=== PATIENT | male | born 1960 | race Caucasian/White ===

== ENCOUNTER → 2017-07-27 09:42 | Outpatient (POV) | payer BC, SELFPAY | PROVIDERS: PCP Family Medicine; Visit Provider Specialist | DX: G56.02 Carpal tunnel syndrome, left upper limb (principal); G56.01 Carpal tunnel syndrome, right upper limb | CPT/HCPCS: 95886; 95909 ==

== ENCOUNTER → 2018-07-01 11:02 | Outpatient (CLI) | payer OTHER, SELFPAY ==
--- NOTE | 2018-07-01 11:10 | XR_ITS ---
XR hip LT 2-3V w/pelvis HISTORY: ITS.REASON: LEFT LEG PAIN,LOW BACK PAIN,DECREASED SENSATION OF LEG ORDERING PHYSICIAN: Ita Higginbotham PATIENT AGE: 58 years COMPARISON: None FINDINGS: No fracture or dislocation is evident. There is mild osteoarthritis of both hips with decrease in joint space medially and mild osteophyte formation along the lower aspect of the acetabulum. No lytic or blastic change. Small bone island involves the left femoral neck at 7 mm IMPRESSION: Mild osteoarthritis of the hips
--- NOTE | 2018-07-01 11:11 | XR_ITS ---
EXAM: XR lumbar spine min 4V HISTORY: ITS.REASON: LEFT LEG PAIN,LOW BACK PAIN,DECREASED SENSATION OF LEG ORDERING PHYSICIAN: Ita Higginbotham PATIENT AGE: 58 years COMPARISON: None FINDINGS: Normal alignment. No fracture or dislocation. No lytic or blastic change. There is degenerative disc disease at L5-S1 with decrease in the disc space and small osteophytes at L4 and L5. There are mild facet arthritic changes at L5-S1. Small anterior osteophytes are present at T12 and L1 IMPRESSION: 1. Degenerative disc disease L5-S1. 2. Mild facet arthritic change L5-S1
== END ==
PROVIDERS: PCP Nurse Practitioner; Visit Provider Nurse Practitioner
DX: M79.605 Pain in left leg (principal); M54.5 Low back pain; R20.8 Other disturbances of skin sensation
CPT/HCPCS: 72110; 73502

== ENCOUNTER → 2018-07-20 08:20 | Outpatient (CLI) | payer OTHER, SELFPAY ==
--- NOTE | 2018-07-20 08:22 | MR_ITS ---
MR hip LT wo con Ordering Physician: Ita Higginbotham Patient Age: 58 years: Male HISTORY: ITS.REASON: ABNORMAL X-RAY Left hip and left buttocks pain. Pain with walking and sitting. No trauma. TECHNIQUE: Multiplanar multisequence imaging 1.5 the MR.No IV contrast . Axial and coronal T1 and STIR images of the pelvis, along with sagittal proton density and T1 image of left hip COMPARISON :. Left hip radiograph July 01, 2018 FINDINGS The femoral head is normal contour and density bilaterally. No evidence of avascular necrosis. The the left hip joint space is well-maintained. Cartilage appears maintained. No subchondral cyst formation. The left acetabular labrum visualized and intact. . The right hip appears intact and symmetrical as well. . No joint effusion either hip. . Initially question Subtle 'pistol-power regulator' configuration the femoral necks on the AP pelvis radiograph but this mild anatomical variation is less evident on MRI.. There is adequate generous generous length bilaterally. No associated areas of impingement or reactive bone changes on either superior femoral neck or hip associated.- No of evidence of femoral acetabular impingement.. No trochanteric bursitis. Trochanteric regions unremarkable bilaterally. There is a small benign bone island at the left femoral neck. 6 mm length. There is a tiny is cystic area towards the lateral subtrochanteric region on the left., Just inferior to the greater trochanter. Not felt to be of significance. No other similar findings. Graphical lower most pelvis included. The pubis, superior and inferior ramus appear normal signal and intact. Only pelvic basin included. No pelvic adenopathy or mass. Normal size prostate. .......IMPRESSION........................ Negative MRI of LEFT HIP, as well as included Right Hip Femoral head intact; hip joint space well maintained. Acetabulum and labrum satisfactory.
== END ==
PROVIDERS: PCP Family Medicine; Visit Provider Nurse Practitioner
DX: R93.89 Abnormal findings on diagnostic imaging of other specified body structures (principal); M25.552 Pain in left hip
CPT/HCPCS: 73721

== ENCOUNTER → 2018-08-20 07:52 | Outpatient (CLI) | payer OTHER, SELFPAY ==
--- NOTE | 2018-08-20 07:54 | MR_ITS ---
MR lumbar spine wo con, MR 3-d myelogram/MRCP HISTORY: Low back pain with left leg pain and numbness ITS.REASON: back pain/ hip pain ORDERING PHYSICIAN: Arina Weller MD PATIENT AGE: 58 years Comparison: 07/01/2018 TECHNIQUE: Standard multiplanar multiecho sequences are performed without contrast. 3-D MIP and myelographic images are also rendered and reviewed FINDINGS: There is normal alignment. The spinal cord ends at the L1-L2 level. T12-L1, L1-L2, and L2-L3 have an unremarkable appearance L3-L4: Mild concentric bulging disc with mild facet and ligamentum flavum hypertrophy with mild bilateral foraminal narrowing. L4-5: There is concentric bulging disc along with facet and ligamentum flavum hypertrophy with moderate bilateral lateral recess and foraminal narrowing. In addition, there is a small to medium-sized left paracentral disc herniation with inferior extrusion of the disc. The disc is extruded inferiorly from left 12 mm. The extruded disc is impinging upon the left L5 nerve root. L5-S1: Concentric bulging disc eccentric toward the right with endplate osteophyte at L5 with facet and ligamentum flavum hypertrophy moderate right lateral recess and moderate bilateral foraminal narrowing. Bilateral renal cysts are noted. IMPRESSION: 1. Mild concentric bulging disc at L3-L4 with mild facet and ligamentum flavum hypertrophy with mild bilateral foraminal narrowing. 2. Bulging disc at L4-L5 along with facet and ligamentum flavum hypertrophy with moderate bilateral lateral recess and foraminal narrowing. In addition, there is a small to medium-sized left paracentral disc herniation with inferior extrusion of the disc. The disc is extruded inferiorly from left 12 mm. The extruded disc is impinging upon the left L5 nerve root. 3. Concentric bulging disc at L5-S1 eccentric toward the right with endplate osteophyte at L5 with facet and ligamentum flavum hypertrophy moderate right lateral recess and moderate bilateral foraminal narrowing
== END ==
PROVIDERS: PCP Family Medicine; Visit Provider Orthopaedic Surgery
DX: M54.5 Low back pain (principal)
CPT/HCPCS: 72148; 76376

== ENCOUNTER → 2020-09-12 08:11 | Outpatient (CLI) | payer OTHER, SELFPAY ==
[2020-09-12 08:15] LABS: Microscopic, Urine URINE MICROSCOPIC (MICROSCOPIC)
[2020-09-12 08:41] LABS: Basophils # 0.1 K/mm3 (0-0.2); Basophils % 0.8 % (0.1-2.0); Eosinophils # 0.2 K/mm3 (0.0-0.4); Hemoglobin 14.4 g/dL (14.1-18.0); Lymphocytes % 55.1 % (10-50); Mean Corpuscular HGB Conc 32.8 g/dL (31.8-35.4); Mean Corpuscular Hemoglobin 28.2 pg (27.0-31.2); Mean Corpuscular Volume 85.9 fl (80-94); Mean Platelet Volume 7.3 fl (7.4-10.4); Monocytes # 0.5 K/mm3 (0.1-1.0); Monocytes % 3.4 % (1.7-9.3); Neutrophils # 5.8 K/mm3 (1.8-7.8); Neutrophils % 39.8 % (37.0-80.0); Platelet Count 226 K/mm3 (142-424); Red Blood Count 5.12 M/mm3 (4.60-6.20); Red Cell Distribution Width 13.6 % (11.5-17.5); White Blood Count 14.6 K/mm3 (4.8-10.8)
[2020-09-12 08:55] LABS: Chloride 103 mmol/L (98-107); Sodium 140 mmol/L (136-145)
[2020-09-12 08:59] LABS: Blood Urea Nitrogen 15 mg/dl (9-20); Calcium 9.5 mg/dl (8.4-10.2); Carbon Dioxide 27 mmol/L (22.0-30.0); Estimated Glomerular Filt Rate 99 ml/min (>60); GFR (African American) 120 ML/MIN (>60); Glucose 110 mg/dl (74-100)
[2020-09-12 09:13] LABS: MANUAL DIFFERENTIAL MANUAL DIFFERENTIAL (MANUAL DIFF)
[2020-09-12 09:24] LABS: Appearance,Urine CLEAR (Clear); Bilirubin,Urine Negative (Negative); Blood, Urine Negative (Negative); Color,Urine YELLOW (Yellow); Glucose,Urine (UA) Negative (Negative); Ketones,Urine Negative (Negative); Leukocyte Esterase,Urine Negative (Negative); Nitrate,Urine Negative (Negative); Protein,Urine Negative (Negative); Urobilinogen,Urine 0.2 EU/dl (0.2)
[2020-09-12 09:53] LABS: Coronavirus 19 IgG Antibody Negative (Negative); Coronavirus 19 IgM Antibody Negative (Negative)
--- NOTE | 2020-09-12 10:08 | ECG_ITS ---
APPROVED REPORT Exam: Resting ECG HR:69 bpm ECG Measurements Heart Rate 69 AXES NE 136 P 51 QRSd 98 QRS 63 QT 392 T 49 QTc 420 Conclusion Normal sinus rhythm Possible Left atrial enlargement Incomplete right bundle branch block Left ventricular hypertrophy Abnormal ECG Electronically signed by : Boni Patiño, 09/13/2020 13:56:34
[2020-09-12 10:47] LABS: Lymphocytes % 49 % (10-50); Monocytes % 3 % (2-9); Neutrophils % 48 % (42-76); Platelet Estimate Normal; RBC Morphology Normal; Total Cells Counted 100
== END ==
PROVIDERS: Visit Provider Surgery
DX: Z01.812 Encounter for preprocedural laboratory examination (principal); Z11.52 Encounter for screening for COVID-19; K40.90 Unilateral inguinal hernia, without obstruction or gangrene, not specified as recurrent
CPT/HCPCS: 36415; 80048; 81001; 85007; 85025; 86328; 93005

== ENCOUNTER 2020-09-14 06:12 | Day surgery (SDC) | payer OTHER, SELFPAY ==
[2020-09-11 12:39] VITALS: BMI 24.3
[2020-09-14] VITALS (12 sets, daily range): BP systolic 93–132; BP diastolic 63–84; PULSE 56–70; RESP 15–20; TEMP 36.6–43; O2SAT 91–97
--- NOTE | 2020-09-14 08:36 | P.OP_ITS ---
Date of procedure: 09/14/20 Pre-op Diagnosis:: Right inguinal hernia Post-op Diagnosis:: Sliding right inguinal hernia Procedure performed:: Open repair of sliding right inguinal hernia Surgeon:: Johnathan Villagomez MD Environmental Services Tech(s):: Ashley KNUCKLE BENDER:: Candelario Villafuerte Anesthesia: GETA Estimated blood loss (mL): 10 Operative findings:: Severe thickening and adhesions between vas deferens/vessels and hernia sac Sliding component along with inferior margin of hernia sac Operative note:: After informed consent was obtained the patient was taken to the operating room and placed in the supine position. General anesthesia was induced and his abdomen/groin/scrotum were prepped and draped in a sterile fashion. After infiltration local anesthetic an oblique right groin incision was made. The deep subcutaneous tissue was dissected with electrocautery through Anthony's fascia to the level of the external aponeurosis. The external aponeurosis was sharply opened to the level of the external ring. The contents of the canal were carefully elevated. Severe adhesions noted throughout the canal. A thic kened/lobulated hernia sac was carefully from surrounding tissue. The vas deferens and vessels were adhered/incorporated into the inferior margin of the hernia sac. No obvious injury to the vas deferens or vessels noted. The hernia sac was carefully opened. A sliding component was noted along the inferior margin. The hernia sac was then closed with running 2-0 Vicryl. An extra-large PerFix plug was then secured in position as the hernia sac was inverted. The PerFix plug was secured with 0 Ethibond. The PerFix overlay mesh was also secured to the shelving edge inferiorly and fascial margin superiorly utilizing 0 Ethibond. The wound was irrigated. The external aponeurosis was reapproximated with running 2-0 Vicryl. Anthony's fascia was closed in the same manner. Skin was then closed with running 3-0 StrataFix. Dressings were applied and the patient was transferred to recovery in stable condition after extubation. Condition: stable Disposition: PACU Specimens:: None Complications:: No immediate
--- NOTE | 2020-09-14 08:47 | P.PN_ITS ---
[facility] [place] Anesthesia Checklist - Patient Identification Patient Identification: Arm Band - Structural Data Admitted From: Home Planned Operative Procedure/s: Right Open Inguinal Hernia Repair Consent for Planned Operative Procedure(s) Verified: Yes Verified Documents: Surgical Consent, History and Physical - NPO Status Verified Time NPO: 00:00 - Additional verifications Anesthesia Reactions: No Hx Blood Transfusions: No Blood Transfusion Reaction: No - Airway Assessment C-Spine Mobility Assessed: Yes (mp2) TMJ Mobility Assessed: Yes Dentition: Edentulous - Neurological Assessment Level of Consciousness: Awake, Alert - Anesthesia Plan Anesthesia Risk discussed: Yes Anesthesia Plan: Verified ASA Class: II Anesthesia Type: General [facility] [place] History I have reviewed the patient's past medical history: Yes Medical History: Reports:: Hypertension Denies:: Cancer, Diabetes Mellitus Type 1, Diabetes Mellitus Type 2, Internal Pacemaker, MRSA, Seizures *Have you ever received a pneumonia vaccine?: No *Have you received a flu vaccine this season?: Yes Other Medical History: Denies: Blood Transfusion Reaction Anesthesia experience/problems:: nac Laterality Cases: Left: Arthroscopy Knee, Right: Other Other Surgeries: Yes: Appendectomy, Colonoscopy. No: Pacemaker Amputation: No Fractures: Yes - *Social History Last grade of school completed: GED Smoking Status: Current every day smoker Tobacco Type: cigarettes # Packs/Day (cigarettes): 1 Alcohol Intake: never Substance Use Type: denies use *Occupational Status:: employed Housing: house Household Members: spouse *Travel in the last 8 weeks: None Family Hx:: No significant family history
--- NOTE | 2020-09-14 08:48 | HMH.ANESI ---
[facility] Anesthesia Record Part I Intake, IV Amount: 1,200 Estimated blood loss (mL): 10 Urine output (mL): 100 Blood Pressure: 93/65 SaO2: 91 Pulse Rate: 67 Respiratory Rate: 16 Temperature: 99.3 F Patient is:: Drowsy, Stable Stable to PACU at:: 08:45
[2020-09-14 08:50] LABS: Microscopic,Cath URINE MICROSCOPIC (MICROSCOPIC)
[2020-09-14 09:18] LABS: Appearance,Urine/Cath CLEAR (Clear); Bilirubin,Cath Negative (Negative); Blood, Urine/Cath Negative (Negative); Color,Urine/Cath YELLOW (Yellow); Glucose,Urine/Cath (UA) Negative (Negative); Ketones,Urine/Cath Negative (Negative); Leukocyte Esterase,Cath Negative (Negative); Nitrate,Cath Negative (Negative); Protein,Urine/Cath Negative (Negative); Urobilinogen,Cath 0.2 EU/dl (0.2)
--- NOTE | 2020-09-14 13:38 | HMH.ANESII ---
[facility] Anesthesia Record Part II Discharge Time: 09:15 Destination: Surgical Day Care (OP Surgery) PACU nurse assessment reviewed?: Yes Patient Condition:: Good Anesthesia Complications:: None Swallowing reflex intact?: Yes Cyanosis?: No Blood Pressure: 107/73 Pulse Rate: 56 Temperature: 99.3 F Mental Status: Alert & Oriented Pain level:: 0 Nausea and/or vomitting:: None Intake, IV Amount: 0
== END 2020-09-14 10:00 | disposition home or self-care (01) ==
PROVIDERS: PCP Family Medicine; Visit Provider Surgery
PROC: (CPT 49507; principal; 2020-09-14 07:30)
DX: K40.90 Unilateral inguinal hernia, without obstruction or gangrene, not specified as recurrent (principal); K66.0 Peritoneal adhesions (postprocedural) (postinfection); K21.9 Gastro-esophageal reflux disease without esophagitis; Z79.899 Other long term (current) drug therapy
CPT/HCPCS: 49507; 81001; 96374; J2405; J2710

== ENCOUNTER 2023-02-08 09:16 | Emergency (ER) | payer OTHER, SELFPAY ==
[2023-02-08 09:45] VITALS: BP 119/75; PULSE 80; RESP 19; TEMP 37.1; O2SAT 96; BMI 25.1
--- NOTE | 2023-02-08 09:48 | XR_ITS ---
PROCEDURE INFORMATION: Exam: XR Chest Exam date and time: 02/08/2023 9:50 AM Age: 62 years old Clinical indication: Cough and fever and shortness of breath; Additional info: SOB, fever, body aches, chills TECHNIQUE: Imaging protocol: Radiologic exam of the chest. Views: 2 views. COMPARISON: No relevant prior studies available. FINDINGS: Lungs: COPD and interstitial disease. Poorly defined density in the superior segment of the right lower lobe, which can be better assessed with CT if clinically indicated. Pleural spaces: No pleural effusion. Heart/Mediastinum: Enlargement of the central pulmonary arteries, in a pattern of pulmonary arterial hypertension. No cardiomegaly. Bones/joints: Degenerative change. IMPRESSION: 1. COPD and interstitial disease. 2. Poorly defined density in the superior segment of the right lower lobe, which can be better assessed with CT if clinically indicated. 3. Additional findings as described above.
[2023-02-08 09:55] LABS: UTC Influenza A Antigen Negative (Negative); UTC Influenza B Antigen Negative (Negative)
--- NOTE | 2023-02-08 10:00 | EXP.UTC ---
Discharge Plan Disposition Patient Disposition: Home, Self-Care Condition: Good Prescriptions Prescriptions: New benzonatate 200 mg capsule 200 mg PO BID PRN (Reason: cough) Qty: 30 0RF methylprednisolone 4 mg Tablets,Dose Pack 4 mg PO DIRECTED Qty: 21 0RF cefdinir 300 mg capsule 300 mg PO BID Qty: 20 0RF No Action omeprazole magnesium [Prilosec OTC] 20 mg tablet,delayed release (DR/EC) 20 mg PO DAILY valsartan 80 MG tablet 80 mg PO DAILY gabapentin 300 MG capsule 300 mg PO QHS hydrocodone-acetaminophen 1 TAB tablet 1 - 2 tab PO Q6HP PRN (Reason: post-op pain) Qty: 17 0RF henvnipnzt-wfkzrlvzmhgiu-ffde 50-325-40 mg tablet 1 tab PO NEEDED PRN (Reason: LOREDO) azelastine 137 mcg (0.1 %) aerosol,spray 2 spray INTRANASAL DAILY naproxen 500 mg tablet 500 mg PO BID diazepam 5 mg tablet 5 mg PO BID Referrals Follow up/Referrals: Ru Sol MD [Primary Care Provider] - See instructions Activity Restrictions/Add. Instructions Additional Instructions/Restrictions: Drink plenty of fluids. Take tylenol or ibuprofen for pain or fever. Take the medications as directed. Follow up with your regular doctor. GO TO THE ER FOR ANY WORSENING SYMPTOMS Clinical Impressions Clinical Impression: Acute bronchitis, Acute viral syndrome Stand Alone Forms Stand Alone Forms: Work/School Release Instructions Patient Instructions: Acute Bronchitis, DI for Acute Bronchitis, Coronavirus Disease 2019, Preventing the Spread of Coronavirus Discharge Instructions Discharge ED Provider: Luis Felipe Chamorro [facility] General Stated complaint: dizzy,congested,cough,chills Mode of Arrival: Ambulatory Source of Information: Patient Limitations: No Limitations Time Seen by Provider: 02/08/23 10:00 Description of Symptoms (Recalled from Triage Doc. by RN): Pt stated that this started thursday. His symptoms are chills, chest congestion, and feels like he is SOB. HEENT Symptoms (Recalled from RN notes): Yes Resp Symptoms (Recalled from RN notes): No Skin Symptoms (Recalled from RN notes): No MS Symptoms (Recalled from RN notes): No Functional Status (Recalled from RN notes): n/a History of Present Illness Provider Complaint: He states that for the past 6 days he has had fever, chills, cough, chest congestion, fever and malaise. Related Data Home Medications Medication Instructions Recorded Confirmed omeprazole magnesium 20 mg 20 mg PO DAILY GERD 08/08/20 02/08/23 tablet,delayed release (Prilosec OTC) gabapentin 300 mg capsule 300 mg PO QHS Pain 09/11/20 09/26/20 valsartan 80 mg tablet 80 mg PO DAILY High blood pressure 09/11/20 02/08/23 azelastine 137 mcg (0.1 %) nasal 2 spray intranasal DAILY allergies 02/08/23 02/08/23 spray aerosol tkmbohqskf-nznemxqddczya-hvcmelwv 1 tab PO NEEDED PRN LOREDO 02/08/23 02/08/23 50 mg-325 mg-40 mg tablet diazepam 5 mg tablet 5 mg PO BID Anxiety 02/08/23 02/08/23 naproxen 500 mg tablet 500 mg PO BID Pain 02/08/23 02/08/23 Previous Rx's Medication Instructions Recorded hydrocodone 5 mg-acetaminophen 325 1 - 2 tab PO Q6HP PRN post-op pain 09/14/20 mg tablet #17 tabs benzonatate 200 mg capsule 200 mg PO BID PRN cough #30 caps 02/08/23 cefdinir 300 mg capsule 300 mg PO BID #20 caps 02/08/23 methylprednisolone 4 mg tablets in 4 mg PO DIRECTED #21 tabs 02/08/23 a dose pack Allergies Allergy/AdvReac Type Severity Reaction Status Date / Time Penicillins Allergy Verified 02/08/23 09:52 Worker's Comp Is this a Worker's Comp case?: No [facility] Disclaimer: The information contained in this section may have been updated after the patient was seen, as this information can be updated by other users. Social History Smoking Status: Current every day smoker tobacco type: cigarettes packs per day: 1 alcohol intake: never substance use type: denies use curr
[2023-02-08 11:01] VITALS: BP 119/75; PULSE 80; RESP 19; TEMP 37.1; O2SAT 96
== END 2023-02-08 11:01 | disposition home or self-care (01) ==
PROVIDERS: Emergency Provider Nurse Practitioner Family; PCP Family Medicine
DX: J20.9 Acute bronchitis, unspecified (principal); B34.9 Viral infection, unspecified; R50.9 Fever, unspecified; R53.81 Other malaise; F17.210 Nicotine dependence, cigarettes, uncomplicated
CPT/HCPCS: 71046; 87804; 99204; 99212; G0463

== ENCOUNTER 2024-10-05 07:27 | Day surgery (SDC) | payer OTHER, SELFPAY ==
[2024-10-03 14:09] VITALS: BMI 23.6
[2024-10-05 08:17] VITALS: BP 150/99; PULSE 87; RESP 18; TEMP 36.8; O2SAT 95
[2024-10-05] MEDS: LACTATED RINGERS 1000ML 1,000 ML 50 ML IV (08:26)
--- NOTE | 2024-10-05 08:41 | P.PNANES_ITS ---
[facility] Disclaimer: The information contained in this section may have been updated after the patient was seen, as this information can be updated by other users. Medical History Migraines Anxiety Arthritis Hypertension Surgical History History of surgery on lower extremity History of appendectomy H/O knee surgery History of lumbar surgery H/O inguinal hernia repair Family History Other Family history non-contributory Social History Smoking Status: Current every day smoker tobacco type: cigarettes packs per day: 1 alcohol intake: never substance use type: marijuana current occupational status: retired Travel in the last 8 weeks?: None household members: spouse housing: house current occupation: construction caffeine: Yes Have you lived/traveled outside [place] in past 30 days?: No Contact w/someone who lives/traveled outside US past 30 days?: No Exposure to someone with infectious disease in past 14 days?: No Do you have a fever (greater than 100.4 F or 38 C)?: No Have you tested positive for COVID-19?: No Exposed to someone with COVID-19 in past 14 days?: No Do you have a sore throat?: No Do you have a cough?: No Do you have any weakness?: No Are you experiencing any nausea/vomitting?: No Do you have any diarrhea?: No Are you experiencing any unusual bleeding?: No Do you have any muscle aches/pain?: No Do you have any abdominal pain?: No Are you experiencing loss of taste or smell?: No [facility] Anesthesia Checklist Patient Identification Patient Identification: Arm Band Structural Data Admitted From: Home Planned Operative Procedure/s: EGD/Colonoscopy Consent for Planned Operative Procedure(s) Verified: Yes Verified Documents: Surgical Consent and History and Physical NPO Status Verified Time NPO: 03:30 Additional verifications Anesthesia Reactions: No Hx Blood Transfusions: No Blood Transfusion Reaction: No Airway Assessment Mallampati Score:: Class II C-Spine Mobility Assessed: Yes TMJ Mobility Assessed: Yes Dentition: Edentulous Neurological Assessment Level of Consciousness: Awake, Alert and Appropriate Anesthesia Plan Anesthesia Risk discussed: Yes Anesthesia Plan: Verified ASA Class: II Anesthesia Type: MAC
--- NOTE | 2024-10-05 08:48 | P.HP_ITS ---
History of Present Illness *Admission Date: 10/05/24 *Reason for visit:: Acid reflux and dyspepsia for upper endoscopy/screening for colonoscopy *History of present illness: Mr. Flaherty is a 64-year-old gentleman who is here for diagnostic EGD and screening colonoscopy. He has had chronic GERD for most of his life. His last colonoscopy was 13 years ago. The examination is deemed medically necessary for diagnostic EGD and surveillance colonoscopy. The patient has been seen, interviewed and examined prior to the procedure by both myself and the anesthesia provider. [facility] Disclaimer: The information contained in this section may have been updated after the patient was seen, as this information can be updated by other users. Medical History (Updated 10/05/24 @ 08:49 by Neal Villareal II, MD) Migraines Anxiety Arthritis Hypertension Surgical History History of surgery on lower extremity History of appendectomy H/O knee surgery History of lumbar surgery H/O inguinal hernia repair Family History Other Family history non-contributory Social History Smoking Status: Current every day smoker tobacco type: cigarettes packs per day: 1 alcohol intake: never substance use type: marijuana current occupational status: retired Travel in the last 8 weeks?: None household members: spouse housing: house current occupation: construction caffeine: Yes Have you lived/traveled outside US in past 30 days?: No Contact w/someone who lives/traveled outside [place] past 30 days?: No Exposure to someone with infectious disease in past 14 days?: No Do you have a fever (greater than 100.4 F or 38 C)?: No Have you tested positive for COVID-19?: No Exposed to someone with COVID-19 in past 14 days?: No Do you have a sore throat?: No Do you have a cough?: No Do you have any weakness?: No Are you experiencing any nausea/vomitting?: No Do you have any diarrhea?: No Are you experiencing any unusual bleeding?: No Do you have any muscle aches/pain?: No Do you have any abdominal pain?: No Are you experiencing loss of taste or smell?: No Other Medical History Have you received the Flu Vaccine for this season: Yes Have you received the Pneumonia Vaccine: No Review of Systems Review of Systems Review of systems (narrative): Negative *Cardiovascular Comments: Negative *Gastrointestinal Comments: Negative *Genitourinary Comments: Negative *Musculoskeletal Comments: Negative *Neurologic Comments: Negative Meds Home Medications and Allergies Home Medications ?Medication ?Instructions ?Recorded ?Confirmed ?Type omeprazole magnesium 20 mg 20 mg PO DAILY GERD 08/08/20 10/05/24 History tablet,delayed release (Prilosec OTC) valsartan 80 mg tablet 80 mg PO DAILY High blood pressure 09/11/20 10/05/24 History tgdpisyxww-tebxfntyatrso-evwwptaq 1 tab PO NEEDED PRN LOREDO 02/08/23 10/05/24 History 50 mg-325 mg-40 mg tablet budesonide 160 mcg-glycopyr 9 2 inh inhalation BID 08/03/24 10/05/24 History mcg-formot 4.8 mcg/actuation HFA inhaler (Breztri Aerosphere) diazepam 5 mg tablet 5 mg PO BID PRN Anxiety 08/03/24 10/05/24 History naproxen 500 mg tablet 500 mg PO BID PRN Pain 08/03/24 10/05/24 History [id number] 140 gram-sod sulfate 9 500 ml PO .COMPLEX colonscopy #3 ea 09/21/24 Rx gram-NaCl 5.2gram-KCl-C oral pwdr packs (Plenvu) New Prescriptions to Start Prescriptions: Allergies Allergy/AdvReac Type Severity Reaction Status Date / Time Penicillins Allergy Unknown Verified 10/05/24 08:15 allergy reaction Exam Data for Last 24 hours Vital signs and Labs for Last 24 Hours: Temp Pulse Resp BP Pulse Ox O2 Del Method 98.3 F 87 18 150/99 H 95 Room Air 10/05/24 08:17 10/05/24 08:17 10/05/24 08:17 10/05/24 08:17 10/05/24 08:17 10/05/24 08:17 I & O for Last 24 hours: Intake & Output 10/02/24 10/03/24 10/04/24 10/05/24 23:59 23:59 23:59 23:59 Weight 165 lb *Routine HEENT Exam Head: Present normocephalic Eye: Present EOMI and PERRL ENT: Present mucous membranes moist *Routine Neck Exam Neck: Present supple *Routine Respiratory Exam Respiratory: Present CTA bilaterally *Routine Cardiovascular Exam Cardiovascular: Present RRR *Routine Abdominal Exam Abdominal: Present soft and normoactive bowel sounds; Absent tenderness *Routine Rectal Exam Rectal:: deferred *Routine Genitalia Exam Genitalia:: deferred *Routine Extremities Exam Extremities: Absent cyanosis, clubbing or edema *Routine Skin Exam Skin: Present warm; Absent rash *Routine Neurological Exam Neurological: Present alert and oriented X3 Assessment and Plan *Assessment and plan (1) GERD (gastroesophageal reflux disease): Status: Acute Category: Medical Code(s): K21.9 - Gastro-esophageal reflux disease without esophagitis (2) Screening for malignant neoplasm of colon: Status: Acute Category: Medical Code(s): Z12.11 - Encounter for screening for malignant neoplasm of colon Plan A/P: 1. GERD/chronic for upper endoscopy and screening for colonoscopy is the preprocedural diagnosis. The patient will be anesthetized/sedated using MAC sedation. The patient has been seen and examined. Cardiac and lung assessment prior to the examination is stable. Proceed with planned diagnostic upper endoscopy and screening colonoscopy.
--- NOTE | 2024-10-05 09:07 | P.PCN_ITS ---
[facility] Procedure Note Date: 10/05/24 Time: 09:14 Procedure Note:: Upper Endoscopy Procedure Report: Esophagogastroduodenoscopy with cold biopsies Endoscopost: Neal Villareal II, MD Referring Physician: Caridad Sol M.D. Date of Procedure: October 05, 2024 Equipment: Olympus GIF 190 standard upper endoscope Sedation: MAC sedation Indications: Mr. Flaherty is a 64-year-old gentleman with longstanding GERD. He was initially on Tums daily for many years. About 4 to 5 years ago he started using [id number]-ivr-cnxaafs Prilosec daily. This did eliminate his heartburn and reflux. He has tried weaning off of the Prilosec but he immediately has resurgence of his heartburn, reflux and dyspepsia. He went back on omeprazole and had resolution of symptoms. He does get some intermittent dysphagia to meats but does not always have dentures then and has some difficulty with mastication. He has never had an upper endoscopy. He recently had stool testing with Dr. Sol and this was either positive Hemoccult or positive Cologuard. I do not have recent CBC. Procedure: Prior to the procedure, a history and physical exam was performed, and patient's medications and allergies were reviewed. The risks, benefits and alternatives of the sedation and procedure were discussed with the patient. All questions were answered and informed consent was obtained. The patient was brought to the procedure room. Patient identification and proposed procedure were verified by the physician and the nurse. The patient was placed in a left lateral decubitus position and the scope was passed under direct vision. Throughout the procedure, the patient's blood pressure, pulse, and oxygen saturations were monitored continuously. The upper GI endoscopy was accomplished without difficulty. The patient tolerated the procedure well. Findings: The scope was passed directly into the upper esophagus and advanced to the third portion of the duodenum. The post bulbar duodenum and duodenal bulb were normal with normal mucosa and conniventes. The scope was withdrawn through a normal duodenal bulb and pylorus into the stomach. There was mild linear reactive gastropathy of antrum and mild chronic gastritis of the proximal stomach. Cold biopsies were taken from the lesser curvature to rule out H. pylo ri. Upon retroflexion there was a 2 cm hiatal hernia. The scope was then withdrawn into the esophagus. There were 2 tongues of salmon-colored mucosa consistent with short segment Pandya's esophagus. Directed biopsies were obtained in the distal esophagus. There was no evidence of reflux esophagitis. There were tertiary contractions and evidence of moderate esophageal dysmotility. The remainder of the esophageal mucosa was normal. Impression: 1. Nonerosive GERD with 2 tongues of salmon-colored mucosa distal esophagus consistent with short segment Pandya's esophagus and small 2 cm hiatal hernia 2. Mild antral gastropathy and mild chronic gastritis Plan: I will follow-up the biopsies. I would continue omeprazole as maintenance therapy. I would consider Voquezna. I will discuss the findings with the patient and family and proceed with surveillance colonoscopy.
[2024-10-05 09:08] VITALS: O2SAT 99
--- NOTE | 2024-10-05 09:17 | P.PCN_ITS ---
[facility] Procedure Note Date: 10/05/24 Time: 09:31 Procedure Note:: Colonoscopy Procedure Report: Colonoscopy with cold snare polypectomy and cold biopsies Endoscopist: Neal Villareal II, MD Referring physician: Caridad Sol M.D. Date of Procedure: October 05, 2024 Equipment: Olympus 190 variable stiffness pediatric colonoscope Sedation: MAC sedation Indication: Mr. Flaherty is a 64-year-old gentleman who is here for screening/surveillance colonoscopy. The patient does state that his recent s creening stool test (Hemoccult or Cologuard) was positive. He does state that his last colonoscopy was 13 years ago. He does have some chronic diarrhea for the last several months which is new. The patient reports no rectal bleeding or melena. He reports no abdominal pain, weight loss or family history of colon cancer. He can occasionally get a lower abdominal cramp that proceeds the bowel movement. Procedure: Prior to the procedure, a history and physical exam was performed, and patient's medications and allergies were reviewed. The risks, benefits and alternatives of the sedation and procedure were discussed with the patient. All questions were answered and informed consent was obtained. The patient was brought to the procedure room. Patient identification and proposed procedure were verified by the physician and the nurse. The patient was placed in a left lateral decubitus position and the scope was passed under direct vision. Throughout the procedure, the patient's blood pressure, pulse, and oxygen saturations were monitored continuously. The colonoscopy was accomplished without difficulty. The patient tolerated the procedure well. Findings: On digital rectal examination there was normal rectal tone. There were no external hemorrhoids. The colonoscope was introduced through the anal canal to the rectum and advanced to the cecum. The ileocecal valve and appendiceal orifice were identified. The scope was advanced a short distance into the ileum which appeared grossly normal. The scope was then withdrawn into the colon. There were 3 polyps (descending x 2 (5 and 5 mm) and sigmoid x 1 (3 mm)). All of these were removed via cold snare polypectomy. Random cold biopsies were taken from the right colon to rule out microscopic colitis. The remaining cecum , ascending, transverse, descending, sigmoid and rectum were grossly normal. There were no mucosal abnormalities identified. Upon retroflexion within the rectum there were grade 2 internal hemorrhoids. The preparation was excellent throughout with [employer] Preparation Score of 9. The cecal time was 12 minutes. Impression: 1. Diminutive colonic polyps x 3 2. Grade 2 internal hemorrhoids Plan: I will follow-up the polyp histology and recommend repeat surveillance colonoscopy again in 5 years if the polyps are adenomatous. I will follow-up the cold biopsies to rule out microscopic colitis. I do feel that he would benefit from bulking psyllium fiber supplementation on a maintenance basis.
[2024-10-05 09:34] VITALS: BP 97/73; PULSE 84; RESP 16; TEMP 36.5; O2SAT 94
[2024-10-05 09:44] VITALS: BP 106/68; PULSE 81; RESP 16; O2SAT 93
[2024-10-05 09:54] VITALS: BP 109/69; PULSE 95; RESP 16; O2SAT 96
[2024-10-05 10:04] VITALS: BP 121/80; PULSE 88; RESP 16; O2SAT 95
== END 2024-10-05 10:09 | disposition home or self-care (01) ==
PROVIDERS: PCP Family Medicine; Visit Provider Internal Medicine Gastroenterology
PROC: 0DJ08ZZ Inspection of Upper Intestinal Tract, Via Natural or Artificial Opening Endoscopic (ICD-10-PCS; CPT 45378; principal; 2024-10-05 09:00)
DX: Z12.11 Encounter for screening for malignant neoplasm of colon (principal); K21.9 Gastro-esophageal reflux disease without esophagitis; K30 Functional dyspepsia; K44.9 Diaphragmatic hernia without obstruction or gangrene; K22.70 Barrett's esophagus without dysplasia; K31.9 Disease of stomach and duodenum, unspecified; K29.70 Gastritis, unspecified, without bleeding; D12.4 Benign neoplasm of descending colon; D12.5 Benign neoplasm of sigmoid colon; K64.1 Second degree hemorrhoids
CPT/HCPCS: 43239; 45380; 45385; J7120